=== PATIENT | male | born 1960 | race Caucasian/White ===

== ENCOUNTER 2016-08-29 17:25 | Emergency (ER) | payer OTHER ==
[~2016-08-29] VITALS: Ht 167.6 cm; Wt 67.4 kg
[~2016-08-29 17:25] MED LIST: AMLO10TA2 PO; AMOX775T5 PO; CLON0.1T12 PO; CLON1PAT7 TD; HUM100VI6 SQ-INSULIN; HYDR100T25 PO; HYDR25TA6 PO; INSU100C5 SQ-INSULIN; INSU100I28 SQ-INSULIN; INSU100V5 SQ-INSULIN; INSU100V8 SQ; LISI40TA PO; LOSA50TA6 PO; METH40TA3 PO; NICO1PAT10 TD
[2016-08-29 17:35] VITALS: BP 156/85
== END 2016-08-29 18:50 | disposition home or self-care (01) ==
LOC: ED 18:42
DX: S71.002D Unspecified open wound, left hip, subsequent encounter (principal)
CPT/HCPCS: 99281

== ENCOUNTER 2016-09-25 19:53 | Emergency (ER) | payer OTHER ==
[~2016-09-25] VITALS: Ht 167.6 cm; Wt 80.0 kg
[2016-09-25 20:00] VITALS: BP_DIAS 103
[2016-09-25 22:34] VITALS: BP_SYST 132
== END 2016-09-25 22:36 | disposition home or self-care (01) ==
LOC: ED 21:12
DX: L02.91 Cutaneous abscess, unspecified (principal); E11.9 Type 2 diabetes mellitus without complications; I10 Essential (primary) hypertension; M54.30 Sciatica, unspecified side; F11.20 Opioid dependence, uncomplicated; F11.10 Opioid abuse, uncomplicated; Z86.73 Personal history of transient ischemic attack (TIA), and cerebral infarction without residual deficits
CPT/HCPCS: 99283

== ENCOUNTER 2016-10-08 03:41 | Inpatient (IN) | payer OTHER ==
[~2016-10-08] VITALS: Ht 167.6 cm; Wt 78.8 kg
[2016-10-08] MEDS ORDERED: MORPHINE SULFATE 4 MG/ML, 1ML IVPush PRN (04:00)
[2016-10-08] MEDS ORDERED: SODIUM CHLORIDE 0.9% 1,000ML IVBOLUS ONE (04:00)
[2016-10-08] MEDS ORDERED: VANCOMYCIN PER PHARMACY MC ONE (04:00)
[2016-10-08] MEDS ORDERED: PIPERACILLIN/TAZO/PMX 3.375GM 50 ML IVPB ONE (04:00)
[2016-10-08] MEDS ORDERED: ONDANSETRON 2MG/ML, 2ML IVPush ONE (04:00)
[2016-10-08] MEDS ORDERED: MORPHINE SULFATE 4 MG/ML, 1ML ONE (04:16)
[2016-10-08] MEDS ORDERED: ONDANSETRON 2MG/ML, 2ML ONE (04:16)
[2016-10-08] MEDS ORDERED: PIPERACILLIN/TAZO/PMX 3.375GM 50 ML ONE (04:18)
[2016-10-08] MEDS ORDERED: CLINDAMYCIN PMX 900MG/50ML 50 ML ONE (04:19)
[2016-10-08] MEDS ORDERED: CLINDAMYCIN PMX 900MG/50ML 50 ML IV ONE (04:30)
[2016-10-08] MEDS ORDERED: VANCOMYCIN 1,200 MG in SODIUM CHLORIDE 0.9% 250 ML IV ONE (04:30)
[2016-10-08 05:48] LABS: ASPARTATE AMINO TRANSFERASE 20 U/L (15-37); BLOOD UREA NITROGEN 73 mg/dL (7-18)
[2016-10-08] MEDS ORDERED: INSULIN REGULAR 100 UNITS/ML, 3ML VIAL IVPush ONE (06:00)
[2016-10-08] MEDS ORDERED: DEXTROSE 50%, 50ML SYRINGE IVPush ONE (06:00)
[2016-10-08] MEDS ORDERED: DEXTROSE 50%, 50ML SYRINGE ONE (06:18)
[2016-10-08] MEDS ORDERED: INSULIN REGULAR 100 UNITS/ML, 3ML VIAL ONE (06:23)
[2016-10-08] MEDS ORDERED: BISACODYL 10 MG SUPP PR PRN (09:30)
[2016-10-08] MEDS ORDERED: ACETAMINOPHEN 325 MG TABLET PO PRN (09:30)
[2016-10-08] MEDS ORDERED: POLYETHYLENE GLYCOL 17 GM PACKET PO PRN (09:30)
[2016-10-08] MEDS ORDERED: PIPERACILLIN/TAZO/PMX 2.25GM 50 ML IV SCH (09:30)
[2016-10-08] MEDS ORDERED: ONDANSETRON 2MG/ML, 2ML IVP PRN (09:30)
[2016-10-08] MEDS ORDERED: VANCOMYCIN PER PHARMACY MC PRN (09:30)
[2016-10-08] MEDS ORDERED: DOCUSATE 100 MG CAPSULE PO PRN (09:30)
[2016-10-08 09:39] VITALS: BP 132/84
[2016-10-08] MEDS ORDERED: VANCOMYCIN 1,200 MG in SODIUM CHLORIDE 0.9% 250 ML IV SCH (10:00)
[2016-10-08] MEDS ORDERED: PHARMACOKINETIC MONITORING MC PRN (10:00)
[2016-10-08] MEDS: INSULIN REGULAR 100 UNITS/ML, 3ML VIAL SQ-INSULIN SCH ×3 (11:55→20:14)
[2016-10-08] MEDS: HEPARIN 5,000 UNITS/ML, 1ML SQ SCH ×2 (11:56→17:30)
[2016-10-08] MEDS: SODIUM CHLORIDE 0.9% 1,000 ML IV SCH ×2 (13:48→20:23)
[2016-10-08] MEDS: NYSTATIN CRM 15GM TP SCH ×3 (13:57→20:45)
[2016-10-08 16:22] VITALS: BP 148/100
[2016-10-08] MEDS: FERROUS SULFATE 325 MG TABLET PO SCH (17:30)
[2016-10-08 20:05] VITALS: BP 162/100
[2016-10-08] MEDS: PIPERACILLIN/TAZO/PMX 2.25GM 50 ML IV SCH (20:44)
[2016-10-08 21:59] VITALS: BP 155/94
[2016-10-09 02:07] VITALS: BP 145/86
[2016-10-09] MEDS: HEPARIN 5,000 UNITS/ML, 1ML SQ SCH ×3 (02:40→17:13)
[2016-10-09] MEDS: PIPERACILLIN/TAZO/PMX 2.25GM 50 ML IV SCH ×4 (02:41→22:10)
[2016-10-09 05:45] LABS: BLOOD UREA NITROGEN 69 mg/dL (7-18)
[2016-10-09 05:48] LABS: ASPARTATE AMINO TRANSFERASE 12 U/L (15-37)
[2016-10-09] MEDS: INSULIN REGULAR 100 UNITS/ML, 3ML VIAL SQ-INSULIN SCH ×4 (07:00→22:13)
[2016-10-09 07:27] VITALS: BP 142/80
[2016-10-09] MEDS: FERROUS SULFATE 325 MG TABLET PO SCH ×2 (09:39→16:55)
[2016-10-09] MEDS: NYSTATIN CRM 15GM TP SCH ×3 (09:41→22:19)
[2016-10-09] MEDS ORDERED: VANCOMYCIN 1,500 MG in SODIUM CHLORIDE 0.9% 250 ML IV SCH (10:00)
[2016-10-09] MEDS: FUROSEMIDE 40 MG/4 ML IV SCH ×2 (13:39→17:22)
[2016-10-09 14:39] VITALS: BP 178/101
[2016-10-09 21:22] VITALS: BP 150/90
[2016-10-10] MEDS: HEPARIN 5,000 UNITS/ML, 1ML SQ SCH ×2 (01:39→09:30)
[2016-10-10 01:43] VITALS: BP 155/85
[2016-10-10] MEDS: PIPERACILLIN/TAZO/PMX 2.25GM 50 ML IV SCH ×2 (05:11→12:06)
[2016-10-10] MEDS: INSULIN REGULAR 100 UNITS/ML, 3ML VIAL SQ-INSULIN SCH ×2 (07:00→12:05)
[2016-10-10] MEDS: FERROUS SULFATE 325 MG TABLET PO SCH (08:00)
[2016-10-10 08:30] VITALS: BP 145/99
[2016-10-10] MEDS: NYSTATIN CRM 15GM TP SCH (09:00)
[2016-10-10] MEDS: FUROSEMIDE 40 MG/4 ML IV SCH (09:03)
[2016-10-10 13:23] VITALS: BP 160/102
[2016-10-10] MEDS ORDERED: VANCOMYCIN 1,500 MG in SODIUM CHLORIDE 0.9% 250 ML IV SCH (22:00)
[2016-11-02] MEDS ORDERED: ARIP15TA2 PO (23:24)
[2016-11-02] MEDS ORDERED: METO25TA35 PO (23:24)
[2016-11-02] MEDS ORDERED: LISI-167 PO (23:24)
[2016-11-02] MEDS ORDERED: DIVA125T3 PO (23:24)
[2016-11-02] MEDS ORDERED: FOLI0.8T2 PO (23:24)
== END 2016-10-10 16:52 | disposition left against medical advice (07) | DRG 682 ==
LOC: ED 04:02 → EDIP 05:57 → 4WST 08:36
PROVIDERS: ADMIT Hospitalist; ATTEND Hospitalist
DX: N17.0 Acute kidney failure with tubular necrosis (principal); E43 Unspecified severe protein-calorie malnutrition; L02.31 Cutaneous abscess of buttock; L02.414 Cutaneous abscess of left upper limb; B18.2 Chronic viral hepatitis C; E87.5 Hyperkalemia; B37.9 Candidiasis, unspecified; D63.8 Anemia in other chronic diseases classified elsewhere; E11.43 Type 2 diabetes mellitus with diabetic autonomic (poly)neuropathy; F11.90 Opioid use, unspecified, uncomplicated; F17.210 Nicotine dependence, cigarettes, uncomplicated; B95.4 Other streptococcus as the cause of diseases classified elsewhere; B95.62 Methicillin resistant Staphylococcus aureus infection as the cause of diseases classified elsewhere; B96.20 Unspecified Escherichia coli [E. coli] as the cause of diseases classified elsewhere; I10 Essential (primary) hypertension; N50.89 Other specified disorders of the male genital organs; Z66 Do not resuscitate; Z68.28 Body mass index [BMI] 28.0-28.9, adult; Z86.73 Personal history of transient ischemic attack (TIA), and cerebral infarction without residual deficits; Z91.14 Patient's other noncompliance with medication regimen; Z88.6 Allergy status to analgesic agent; Z88.2 Allergy status to sulfonamides; Z88.8 Allergy status to other drugs, medicaments and biological substances
CPT/HCPCS: 36415; 72192; 74000; 80053; 80202; 81001; 82550; 82962; 83540; 83550; 83605; 83735; 84100; 84145; 84443; 85025; 85610; 87040; 87070; 87077; 87086; 87186; 87205; 93005; 96365; 96375; J1644; J1815; J1940; J2405; J2543; J3370; J7030; J7050